=== PATIENT | female | born 1940 | race Caucasian/White ===

== ENCOUNTER 2022-02-17 17:42 | Inpatient (IN) | payer MEDICARE ==
[2022-02-17] MEDS ORDERED: Sodium Chloride 0.9% 10 ML Syringe FLUSH PRN (18:07)
[2022-02-17] MEDS ORDERED: Albuterol/Ipratropium 3.0-0.5 MG/3 ML Neb Soln NEB ONE ×3 (18:07→19:17)
[2022-02-17] MEDS ORDERED: Magnesium Sulfate/Water 2 GM in Premix Bag 1 BAG IV ONE (18:08)
[2022-02-17] MEDS ORDERED: methylPREDNISolone Sodium Succinate 125 MG/2 ML SDV IVPUSH ONE (18:08)
[2022-02-17] MEDS ORDERED: Furosemide 40 MG/4 ML VIAL IVPUSH ONE (19:54)
[2022-02-17] MEDS ORDERED: Nitroglycerin 0.4 MG Tab.SL SL STA (19:57)
[2022-02-18] MEDS ORDERED: Albuterol 0.083% 2.5 MG/3 ML Neb Soln ONE (01:10)
[2022-02-18] MEDS: Albuterol 0.083% 2.5 MG/3 ML Neb Soln NEB PRN ×2 (01:12→06:19)
[2022-02-18] MEDS ORDERED: Furosemide 40 MG/4 ML VIAL IVPUSH ONE (06:00)
[2022-02-18] MEDS ORDERED: Albuterol 6.7 GM Inhaler INH PRN (07:08)
[2022-02-18] MEDS ORDERED: Clotrimazole 10 MG Troche PO PRN (07:08)
[2022-02-18] MEDS ORDERED: Albuterol/Ipratropium 3.0-0.5 MG/3 ML Neb Soln INH PRN (07:08)
[2022-02-18] MEDS: Losartan 100 MG Tab PO SCH (07:56)
[2022-02-18] MEDS: amLODIPine 10 MG Tab PO SCH (07:56)
[2022-02-18] MEDS: Carvedilol 12.5 MG Tab PO SCH ×2 (08:58→20:59)
[2022-02-18] MEDS: Azithromycin 500 MG in Sodium Chloride 0.9% 250 ML IV SCH (09:02)
[2022-02-18] MEDS: Dexamethasone 6 MG TABLET PO SCH (09:03)
[2022-02-18] MEDS: Enoxaparin 30 MG/0.3 ML Syringe SUBCUT SCH (09:03)
[2022-02-18] MEDS: Cyanocobalamin (Vitamin B12) 1,000 MCG Tab PO SCH (09:04)
[2022-02-18] MEDS: Formoterol/Mometasone 200-5 MCG 8.8 GM Inhaler IH SCH ×2 (09:37→20:01)
[2022-02-18] MEDS: Tiotropium Bromide 4 GM Inhalation Spray (2.5mcg/1 dose; 10 doses) INH SCH (09:38)
[2022-02-18] MEDS ORDERED: DESVENLAFAXINE SUCCINATE PO SCH (18:00)
[2022-02-18] MEDS ORDERED: Magnesium Oxide 400 MG Tab PO SCH (18:00)
[2022-02-18] MEDS ORDERED: Montelukast 10 MG Tab PO SCH (18:00)
[2022-02-18] MEDS ORDERED: Mirtazapine 30 MG Tab PO SCH (21:00)
[2022-02-18] MEDS ORDERED: Pramipexole 0.25 MG Tab PO SCH (21:00)
[2022-02-19 06:06] LABS: ESTIMATED GFR > 60 mL/min (>60)
[2022-02-19] MEDS: Formoterol/Mometasone 200-5 MCG 8.8 GM Inhaler IH SCH (08:00)
[2022-02-19] MEDS: Tiotropium Bromide 4 GM Inhalation Spray (2.5mcg/1 dose; 10 doses) INH SCH (08:00)
[2022-02-19] MEDS: Cyanocobalamin (Vitamin B12) 1,000 MCG Tab PO SCH (08:19)
[2022-02-19] MEDS: Dexamethasone 6 MG TABLET PO SCH (08:20)
[2022-02-19] MEDS: Enoxaparin 30 MG/0.3 ML Syringe SUBCUT SCH (08:20)
[2022-02-19] MEDS: Azithromycin 500 MG in Sodium Chloride 0.9% 250 ML IV SCH (08:20)
[2022-02-19] MEDS: Carvedilol 12.5 MG Tab PO SCH (08:22)
[2022-02-19] MEDS: amLODIPine 10 MG Tab PO SCH (08:22)
[2022-02-19] MEDS: Losartan 100 MG Tab PO SCH (08:22)
[2022-02-19 08:23] VITALS: BP 166/101; PULSE 81
[2022-02-19] MEDS: Albuterol 0.083% 2.5 MG/3 ML Neb Soln NEB PRN (09:56)
== END 2022-02-19 11:50 | disposition home or self-care (01) | DRG 190 ==
LOC: JD.ED 17:42 → JD.ICU 23:39
PROVIDERS: ADMIT Internal Medicine; ATTEND Internal Medicine
DX: J44.1 Chronic obstructive pulmonary disease with (acute) exacerbation (principal); J96.21 Acute and chronic respiratory failure with hypoxia; R09.02 Hypoxemia; H54.7 Unspecified visual loss; J44.9 Chronic obstructive pulmonary disease, unspecified; K57.90 Diverticulosis of intestine, part unspecified, without perforation or abscess without bleeding; F32.A Depression, unspecified; F17.200 Nicotine dependence, unspecified, uncomplicated; Z20.822 Contact with and (suspected) exposure to COVID-19; N28.9 Disorder of kidney and ureter, unspecified; I50.9 Heart failure, unspecified; I11.0 Hypertensive heart disease with heart failure; Z88.2 Allergy status to sulfonamides; Z88.0 Allergy status to penicillin; Z79.899 Other long term (current) drug therapy; Z86.718 Personal history of other venous thrombosis and embolism; Z79.01 Long term (current) use of anticoagulants; Z85.820 Personal history of malignant melanoma of skin; Z79.51 Long term (current) use of inhaled steroids; Z79.52 Long term (current) use of systemic steroids
CPT/HCPCS: 36415; 71045; 80053; 83880; 85025; 85610; 93005; 94640 ×3; A9270; J1940; J2930; J3475; J3490; U0002; 93010; 96365; 96366; 96375; 99284; 99285-25; J0456; J1650; J7050; J7620-GY; J8540